=== PATIENT | female | born 1985 | race African-American/Black ===

== ENCOUNTER 2018-10-24 18:41 | Emergency (ER) | payer SELFPAY ==
--- NOTE | 2018-10-24 18:59 | ER Document Report ---
ED Medical Screen (RME) - General Chief Complaint: Probable Seizure Stated Complaint: LEG INJURY Time Seen by Provider: 10/24/18 18:49 Mode of Arrival: Wheelchair Information source: Patient Notes: Patient presents stating that she has had 2 seizures within the past week with the last one being 3 days ago. Patient presents complaining of right knee pain after falling when she had a seizure. Patient reports a history of PTSD and epilepsy. Patient states she recently relocated to the area and has not gotten established with a primary doctor. Patient states she has been cutting her usua l medication doses in half to make them last longer. I have greeted and performed a rapid initial assessment of this patient. A comprehensive ED assessment and evaluation of the patient, analysis of test results and completion of the medical decision making process will be conducted by additional ED providers. TRAVEL OUTSIDE OF THE [place] IN LAST 30 DAYS: No - Related Data Allergies/Adverse Reactions: No Known Allergies Allergy (Verified 10/24/18 18:43) Physical Exam - Vital signs Vitals: Temp Pulse Resp BP Pulse Ox 98.4 F 87 16 101/62 100 10/24/18 18:49 10/24/18 18:49 10/24/18 18:49 10/24/18 18:49 10/24/18 18:49 - Extremities General lower extremity: Tender - Right knee joint pain, positive effusion Course - Vital Signs Vital signs: Temp Pulse Resp BP Pulse Ox 98.4 F 87 16 101/62 100 10/24/18 18:49 10/24/18 18:49 10/24/18 18:49 10/24/18 18:49 10/24/18 18:49
--- NOTE | 2018-10-24 19:35 | RADIOLOGY REPORT (SQ) ---
EXAM DESCRIPTION: KNEE RIGHT 4 VIEWS COMPLETED DATE/TIME: 10/24/2018 7:27 pm REASON FOR STUDY: seizure, r knee pain COMPARISON: None. NUMBER OF VIEWS: Four views. TECHNIQUE: AP, lateral, and both oblique radiographic images acquired of the right knee. LIMITATIONS: None. FINDINGS: MINERALIZATION: Normal. BONES: No acute fracture or dislocation. Multi compartment joint space narrowing with prominent oste ophytes. No worrisome bone lesions. JOINT: No effusion. SOFT TISSUES: No soft tissue swelling. No radio-opaque foreign body. OTHER: No other significant finding. IMPRESSION: DEGENERATIVE JOINT DISEASE. NO ACUTE FINDINGS. TECHNICAL DOCUMENTATION: JOB ID: [id number] [employer]- All Rights Reserved Reading location - IP/workstation name: [email or web address]
[2018-10-24 19:57] LABS: ABSOLUTE LYMPHOCYTES (AUTO) 1.8 10^3/uL (0.5-4.7); ABSOLUTE MONOCYTES (AUTO) 0.5 10^3/uL (0.1-1.4); ABSOLUTE NEUT (AUTO) 2.3 10^3/uL (1.7-8.2); BASOPHILS % (AUTO) 0.5 % (0-2); EOSINOPHILS % (AUTO) 1.1 % (0-6); HEMATOCRIT 30.9 % (36.0-47.0); HEMOGLOBIN 9.8 g/dL (12.0-15.5); LYMPHOCYTES % (AUTO) 39.6 % (13-45); MEAN CORPUSCULAR HEMOGLOBIN 25.7 pg (27.0-33.4); MEAN CORPUSCULAR HGB CONC 31.8 g/dL (32.0-36.0); MEAN CORPUSCULAR VOLUME 81 fl (80-97); MONOCYTES % (AUTO) 9.9 % (3-13); PLATELET COUNT 251 10^3/uL (150-450); RED BLOOD COUNT 3.82 10^6/uL (3.72-5.28); SEGMENTED NEUTROPHILS % (AUTO) 48.9 % (42-78); TOTAL CELLS COUNTED % (AUTO) 100 %; WHITE BLOOD COUNT 4.6 10^3/uL (4.0-10.5)
[2018-10-24 20:25] LABS: ALBUMIN 3.9 g/dL (3.5-5.0); ALKALINE PHOSPHATASE 55 U/L (38-126); ANION GAP 6 (5-19); ASPARTATE AMINO TRANSFERASE 18 U/L (14-36); BILIRUBIN,DIRECT 0.1 mg/dL (0.0-0.4); BILIRUBIN,TOTAL 0.2 mg/dL (0.2-1.3); BLOOD UREA NITROGEN 11 mg/dL (7-20); CALCIUM 9.3 mg/dL (8.4-10.2); CARBON DIOXIDE 29 mmol/L (22-30); CHLORIDE 106 mmol/L (98-107); GLUCOSE 78 mg/dL (75-110); POTASSIUM 4.2 mmol/L (3.6-5.0); TOTAL PROTEIN 6.6 g/dL (6.3-8.2)
--- NOTE | 2018-10-24 21:00 | EKG REPORT ---
SEVERITY:- NORMAL ECG - SINUS RHYTHM : Confirmed by: Erik Palacios MD 24-Oct-2018 20:59:51
--- NOTE | 2018-10-24 22:09 | ER Document Report ---
ED General - General Chief Complaint: Probable Seizure Stated Complaint: LEG INJURY Time Seen by Provider: 10/24/18 18:49 Mode of Arrival: Wheelchair Notes: Patient is a 33-year-old female with epilepsy that presents to the emergency department for chief complaint of right knee injury. Patient states that she has had 3 seizures in the past week, because she is been cutting back on her Lamictal, to make it last longer, she states that she does not have a primary care and recently moved to the area, and has been trying to make it work, but she is been having more seizures and as a result she injured her right knee during 1 of her seizures on Friday where she struck it on a table. She is having pain with walking, and she has a history of issues with her right knee, where she has valgus deformity, that she states was supposed to be corrected when she was a teenager, but never occurred, so she has one shorter length and the other. She has pain with range of motion of the knee, but denies any redness, it has swollen, but no fevers. She currently rates her pain at rest as a 3 out of 10 describes as a dull aching sensation that is constant but worse with walking. Past Medical History: Epilepsy, PTSD Past Surgical History: Denies any recent or pertinent surgical history Social History: Denies tobacco, alcohol or drug use. Family History: Reviewed and noncontributory for presenting illness Allergies: Reviewed, see documented allergy list. REVIEW OF SYSTEMS: Other than noted above, the 12 point review of systems was reviewed with the patient and were negative, all pertinent findings are included in the HPI. PHYSICAL EXAMINATION: Vital signs reviewed, nursing noted reviewed. GENERAL: Well-appearing, well-nourished and in no acute distress. HEAD: Atraumatic, normocephalic. EYES: Eyes appear normal, extraocular movements intact, sclera anicteric, conjunctiva are normal. ENT: nares patent, oropharynx clear without exudates. Moist mucous membranes. NECK: Normal range of motion, supple without lymphadenopathy LUNGS: Breath sounds clear to auscultation bilaterally and equal. No wheezes rales or rhonchi. HEART: Regular rate and rhythm without murmurs EXTREMITIES: The right knee has valgus deformity, there is an appreciable joint effusion, without erythema, there is tenderness to palpation over the anterior joint lines, but none posterior, no joint instability, negative anterior and posterior drawer testing, there is healing ecchymosis over the anterior aspect. The patella is in proper alignment. The rest the patient's extremity exam is grossly unremarkable. NEUROLOGICAL: No focal neurological deficits. Moves all extremities spontaneously Motor and sensory grossly intact on exam. PSYCH: Normal mood, normal affect. SKIN: Warm, Dry, normal turgor, no rashes or lesions noted on exposed skin TRAVEL OUTSIDE OF THE [place] IN LAST 30 DAYS: No - Related Data Allergies/Adverse Reactions: No Known Allergies Allergy (Verified 10/24/18 18:43) Past Medical History - General Information source: Patient - Social History Smoking Status: Never Smoker Family History: Reviewed & Not Pertinent Patient has suicidal ideation: No Patient has homicidal ideation: No Neurological Medical History: Reports: Hx Seizures Physical Exam - Vital signs Vitals: Temp Pulse Resp BP Pulse Ox 98.4 F 87 16 101/62 100 10/24/18 18:49 10/24/18 18:49 10/24/18 18:49 10/24/18 18:49 10/24/18 18:49 Course - Re-evaluation Re-evalutation: Patient seen and examined vital signs reviewed. Laboratory data and/or imaging were ordered as appropriate for the patient's presenting symptoms and complaint, with consideration of any critical or life threatening conditions that may be associated with their obtained history and exam as noted above. Patient was treated with IM Depo-Medrol and Toradol Results were reviewed when available and demonstrated arthritis in the knee joint, blood work unremarkable, only mild anemia which patient apparently has history of, ordered in triage The patient was re-evaluated and was stable Evaluation was most consistent with left knee pain with joint effusion, patient was discharged home with naproxen, crutches, and Francisco Javier wrap, advised follow-up with orthopedics, given referral to primary care, and given prescription for Lamictal, so that she does have a antiepileptic medication at home. Results were discussed with the patient at this point, after careful consideration I feel that that patient can be discharged from the emergency department, the patient was educated treatments and reasons to return to the emergency department based on their presumed diagnosis as noted above, they were advised to followup with a primary care physician in 2-3 days. Patient was agreeable to plan of care. *Note is created using voice recognition software and may contain spelling, syntax or grammatical errors. Laboratory 10/24/18 10/24/18 19:33 19:33 WBC 4.6 RBC 3.82 Hgb 9.8 L Hct 30.9 L MCV 81 MCH 25.7 L MCHC 31.8 L RDW 16.0 H Plt Count 251 Lymph % (Auto) 39.6 Sheridan % (Auto) 9.9 Eos % (Auto) 1.1 Baso % (Auto) 0.5 Absolute Neuts (auto) 2.3 Absolute Lymphs (auto) 1.8 Absolute Monos (auto) 0.5 Absolute Eos (auto) 0.0 Absolute Basos (auto) 0.0 Seg Neutrophils % 48.9 Sodium 141.2 Potassium 4.2 Chloride 106 Carbon Dioxide 29 Anion Gap 6 BUN 11 Creatinine 0.85 Est GFR ( Amer) > 60 Est GFR (MDRD) Non-Af > 60 Glucose 78 Calcium 9.3 Total Bilirubin 0.2 Direct Bilirubin 0.1 Neonat Total Bilirubin Not Reportable Neonat Direct Bilirubin Not Reportable Neonat Indirect Bili Not Reportable AST 18 ALT 10 Alkaline Phosphatase 55 Total Protein 6.6 Albumin 3.9 Knee X-Ray 10/24/18 18:57 IMPRESSION: DEGENERATIVE JOINT DISEASE. NO ACUTE FINDINGS. - Vital Signs Vital signs: Temp Pulse Resp BP Pulse Ox 98.1 F 61 16 103/57 L 99 10/24/18 21:50 10/24/18 21:50 10/24/18 21:50 10/24/18 21:50 10/24/18 21:50 - Laboratory Result Diagrams: 10/24/18 19:33 10/24/18 19:33 Laboratory results interpreted by me: 10/24/18 19:33 Hgb 9.8 L Hct 30.9 L MCH 25.7 L MCHC 31.8 L RDW 16.0 H - EKG Interpretation by Me Additional EKG results interpreted by me: EKG demonstrates sinus rhythm with a ventricular rate of 69 bpm, normal axis, normal intervals, no evidence of ischemia in this EKG. Discharge - Discharge Clinical Impression: Knee effusion, right Right knee injury Qualifiers: Encounter type: initial encounter Qualified Code(s): S89.91XA - Unspecified i njury of right lower leg, initial encounter Condition: Stable Disposition: HOME, SELF-CARE Instructions: Knee Effusion ([facility]), Suspected Internal Knee Injury ([facility]) Additional Instructions: Please follow-up with orthopedic surgery, keep your knee wrapped with the Francisco Javier wrap to decrease the swelling, keep it elevated as much as possible throughout the day, and apply a warm or cool compress for 20 minutes on 20 minutes off throughout the day to try to help with swelling and pain, he can also take the prescribed medication. Primary care group is been listed with your paperwork, I have also referred you to our case folder. Prescriptions: Lamotrigine [Lamictal] 200 mg PO BID #60 tablet Lamotrigine [Lamictal] 50 mg PO BID #120 tablet Naproxen [Naprosyn] 500 mg PO BID #30 tablet Referrals: ANGELICA CHEN MD [ACTIVE STAFF] - Follow up in 3-5 days (orthopedics ) [facility] [Provider Group] - Follow up in 3-5 days (primary care. )
[2018-10-24] MEDS ORDERED: KETOROLAC TROMETHAMINE 60 MG/2 ML SDV IM ONE (22:26)
[2018-10-24] MEDS ORDERED: METHYLPREDNISOLONE ACETATE INJ 80 MG/1 ML VIAL IM ONE (22:26)
[2018-10-25 00:21] VITALS: BP 108/59
== END 2018-10-24 22:55 | disposition home or self-care (01) ==
LOC: ER 18:41
DX: S89.91XA Unspecified injury of right lower leg, initial encounter (principal); M25.461 Effusion, right knee; M25.561 Pain in right knee; W22.8XXA Striking against or struck by other objects, initial encounter
CPT/HCPCS: 93005; 99284; 96372; 36415; 85025; 80053; 73564; 93010; J1885; J1040

== ENCOUNTER 2018-12-26 14:29 | Emergency (ER) | payer SELFPAY ==
[2018-12-26 14:56] VITALS: BP 131/57
--- NOTE | 2018-12-26 15:14 | ER Document Report ---
ED Medical Screen (RME) - General Chief Complaint: Medication Refill Stated Complaint: MEDICATION REFILL Time Seen by Provider: 12/26/18 15:11 Mode of Arrival: Ambulatory Information source: Patient Notes: 33-year-old female presented to ED due to running out of her seizure medicines. She states she just moved from [place]. She states she has not been able to get a primary doctor due to her insurance problems. She states she has run out of her seizure medications. She states she took her seizure medicines last night she states she has her medication bottles with her. States she smokes half pack a day does not drink or do any drugs. She states as long as she takes her medication she does not have seizures. Menstrual cycle was December 13, 2018. I have greeted and performed a rapid initial assessment of this patient. A comprehensive ED assessment and evaluation of the patient, analysis of test results and completion of medical decision making process will be conducted by an additional ED providers. TRAVEL OUTSIDE OF THE [place] IN LAST 30 DAYS: No - Related Data Allergies/Adverse Reactions: No Known Allergies Allergy (Verified 10/24/18 18:43) Past Medical History Neurological Medical History: Reports: Hx Seizures Physical Exam - Vital signs Vitals: Temp Pulse Resp BP Pulse Ox 98.4 F 74 18 131/57 H 100 12/26/18 14:56 12/26/18 14:56 12/26/18 14:56 12/26/18 14:56 12/26/18 14:56 Course - Vital Signs Vital signs: Temp Pulse Resp BP Pulse Ox 98.4 F 74 18 131/57 H 100 12/26/18 14:56 12/26/18 14:56 12/26/18 14:56 12/26/18 14:56 12/26/18 14:56
[2018-12-26 15:45] LABS: APPEARANCE,URINE SLIGHTLY-CLOUDY; BILIRUBIN,URINE NEGATIVE (NEGATIVE); COLOR,URINE YELLOW; GLUCOSE, URINE NEGATIVE (NEGATIVE); KETONES,URINE NEGATIVE (NEGATIVE); PROTEIN,URINE NEGATIVE (NEGATIVE); URINE SPECIFIC GRAVITY 1.025; UROBILINOGEN,URINE NEGATIVE mg/dL (<2.0)
[2018-12-26 15:56] LABS: ALBUMIN 3.8 g/dL (3.5-5.0); ALKALINE PHOSPHATASE 52 U/L (38-126); ANION GAP 9 (5-19); ASPARTATE AMINO TRANSFERASE 18 U/L (14-36); BILIRUBIN,DIRECT 0.1 mg/dL (0.0-0.4); BILIRUBIN,TOTAL 0.2 mg/dL (0.2-1.3); BLOOD UREA NITROGEN 10 mg/dL (7-20); CALCIUM 8.8 mg/dL (8.4-10.2); CARBON DIOXIDE 21 mmol/L (22-30); CHLORIDE 112 mmol/L (98-107); GLUCOSE 87 mg/dL (75-110); POTASSIUM 4.2 mmol/L (3.6-5.0); TOTAL PROTEIN 6.8 g/dL (6.3-8.2)
[2018-12-26 15:59] LABS: ABSOLUTE EOSINOPHILS # (AUTO) 0.1 10^3/uL (0.0-0.6); ABSOLUTE MONOCYTES (AUTO) 0.5 10^3/uL (0.1-1.4); ABSOLUTE NEUT (AUTO) 2.4 10^3/uL (1.7-8.2); EOSINOPHILS % (AUTO) 1.3 % (0-6); HEMOGLOBIN 9.8 g/dL (12.0-15.5); TOTAL CELLS COUNTED % (AUTO) 100 %
[2018-12-26 16:04] LABS: BASOPHILS % (AUTO) 0.6 % (0-2); HEMATOCRIT 30.8 % (36.0-47.0); LYMPHOCYTES % (AUTO) 40.5 % (13-45); MEAN CORPUSCULAR HGB CONC 31.9 g/dL (32.0-36.0); MEAN CORPUSCULAR VOLUME 79 fl (80-97); MONOCYTES % (AUTO) 9.6 % (3-13); PLATELET COUNT 238 10^3/uL (150-450); RED BLOOD COUNT 3.92 10^6/uL (3.72-5.28); RED CELL DISTRIBUTION WIDTH 16.3 % (11.5-14.0)
--- NOTE | 2018-12-26 16:53 | ER Document Report ---
HPI - HPI Time Seen by Provider: 12/26/18 15:11 Pain Level: 0 Notes: Patient is a 33-year-old female who presents requesting refill of her Lamictal that she takes for seizures. She also has a history of PTSD. Patient last had it filled by 1 of our providers here at the end of September. Patient states that she takes 500 mg total and 1 day with 250 in the morning and 250 in the evening. Patient states that her last seizure was about 3 weeks ago which is not uncommo n for her. She is otherwise able to eat and drink without difficulty. She is urinating normally and having normal bowel movements. Patient states that she did have a job, but was let go recently so she has had issues with insurance and finding a primary provider. No other concerns or complaints. Denies any headache, fever, head injury, neck pain, changes in vision/speech/mentation/hearing, URI, sore throat, chest pain, palpitations, syncope, cough, shortness of breath, wheeze, dyspnea, abdominal pain, nausea/vomiting/diarrhea, urinary retention, dysuria, hematuria, loss of control of bowel or bladder, numbness/tingling, saddle anesthesia, muscle paralysis/weakness, or rash. - ROS Systems Reviewed and Negative: Yes All other systems reviewed and negative - REPRODUCTIVE Reproductive: DENIES: : Past Medical History - General Information source: Patient - Social History Smoking Status: Current Every Day Smoker Chew tobacco use (# tins/day): No Frequency of alcohol use: None Drug Abuse: None Family History: Reviewed & Not Pertinent Patient has suicidal ideation: No Patient has homicidal ideation: No Neurological Medical History: Reports: Hx Seizures Vertical Provider Document - CONSTITUTIONAL Agree With Documented VS: Yes - He Notes: PHYSICAL EXAMINATION: GENERAL: Well-appearing, well-nourished and in no acute distress. HEAD: Atraumatic, normocephalic. EYES: Pupils equal round and reactive to light, extraocular movements intact, sclera anicteric, conjunctiva are normal. ENT: Nares patent and without discharge. oropharynx clear without exudates. No tonsilar hypertrophy or erythema. Moist mucous membranes. NECK: Normal range of motion, supple without lymphadenopathy LUNGS: Breath sounds clear to auscultation bilaterally and equal. No wheezes rales or rhonchi. HEART: Regular rate and rhythm without murmurs, rubs, gallops. ABDOMEN: Soft, nontender, nondistended abdomen. No guarding, no rebound. No masses appreciated. Normal bowel sounds present. No CVA tenderness bilaterally. Musculoskeletal: FROM to passive/active. Strength 5+/5. Extremities: No cyanosis, clubbing, or edema b/l. Peripheral pulses 2+. Capillary refill less than 3 seconds. NEUROLOGICAL: Cranial nerves grossly intact. Normal speech, normal gait. Normal sensory, motor exams PSYCH: Normal mood, normal affect. SKIN: Warm, Dry, normal turgor, no rashes or lesions noted. - INFECTION CONTROL TRAVEL OUTSIDE OF THE [place] IN LAST 30 DAYS: No Course - Re-evaluation Re-evalutation: 12/26/18 16:49 Patient is an afebrile, well-hydrated, 33-year-old female who presents for refill of her medication for seizures. Vitals are acceptable without significant tachycardia, tachypnea, or hypoxia. PE is otherwise unremarkable. Patient is nontoxic-appearing and is tolerating p.o. without difficulty. Labs unremarkable. No further work-up warranted. I reviewed with patient that I will refill her medication, but she needs to establish with a family provider as we are not able to continue providing medications in this type of capacity. Low suspicion for any sepsis, meningitis, severe dehydration, respiratory c ompromise, or other systemic emergent condition at this time. Pt is aware that condition can change from initial presentation and she needs to monitor symptoms closely and seek medical attention with any acute changes. Recheck with established with PCM this next week. Return to the ED with any other worsening/concerning symptoms. Patient is in agreement. - Vital Signs Vital signs: Temp Pulse Resp BP Pulse Ox 98.4 F 74 18 131/57 H 100 12/26/18 14:56 12/26/18 14:56 12/26/18 14:56 12/26/18 14:56 12/26/18 14:56 - Laboratory Result Diagrams: 12/26/18 15:40 12/26/18 15:33 Laboratory results interpreted by me: 12/26/18 12/26/18 15:33 15:40 Hgb 9.8 L Hct 30.8 L MCV 79 L MCH 25.0 L MCHC 31.9 L RDW 16.3 H Chloride 112 H Carbon Dioxide 21 L Discharge - Discharge Clinical Impression: Medication refill Condition: Stable Disposition: HOME, SELF-CARE Additional Instructions: You may call the hospital to speak with "Discharge Planning" to help you get involved with the [facility]. Rest, Ice/cool compress Tylenol/ibuprofen as needed Light stretches daily Strength exercises as able Moist heat and massage may help Establish with PCP within the next week for a recheck Consider consult(s) with Neurology for ongoing/worsening symptoms Return to the ED with any worsening symptoms and/or development of fever, headache, changes in behavior/mentation/vision/speech, chest pain, palpitations, syncope, shortness of breath, trouble breathing, abdominal pain, n/v/d, blood in stool/urine, loss of control of bowel/bladder, urinary retention, muscle weakness/paralysis, saddle anesthesia, numbness/tingling, or other worsening symptoms that are concerning to you. Prescriptions: Lamotrigine [Lamictal] 200 mg PO BID #60 tablet Lamotrigine [Lamictal] 50 mg PO BID #120 tablet Forms: Elevated Blood Pressure Referrals: [facility] [Provider Group] - Follow up as needed [facility] [Provider Group] - Follow up in 1 week
== END 2018-12-26 17:07 | disposition home or self-care (01) ==
LOC: ER 14:29
DX: G40.909 Epilepsy, unspecified, not intractable, without status epilepticus (principal); F43.10 Post-traumatic stress disorder, unspecified; F17.200 Nicotine dependence, unspecified, uncomplicated
CPT/HCPCS: 36415; 80053; 81001; 84703; 85025

== ENCOUNTER 2019-03-13 17:08 | Emergency (ER) | payer SELFPAY ==
[2019-03-13 17:12] VITALS: BP 116/61
--- NOTE | 2019-03-13 17:26 | ER Document Report ---
HPI - HPI Time Seen by Provider: 03/13/19 17:15 Pain Level: Denies Notes: Patient is a 33-year-old female who presents requesting refill of her Lamictal that she takes for seizures. She also has a history of PTSD. Patient states that her last seizure was about a couple days ago which is not uncommon for her. She is otherwise able to eat and drink without difficulty. She is urinating normally and having normal bowel movements. Pt has tried calling some local ur gent cares but they charge too much. She never contacted the [facility] which I reviewed with her thoroughly at her last eval. No other concerns or complaints. Denies any headache, fever, head injury, neck pain, changes in vision/speech/mentation/hearing, URI, sore throat, chest pain, palpitations, syncope, cough, shortness of breath, wheeze, dyspnea, abdominal pain, nausea/vomiting/diarrhea, urinary retention, dysuria, hematuria, loss of control of bowel or bladder, numbness/tingling, saddle anesthesia, muscle paralysis/weakness, or rash. PHYSICAL EXAMINATION: GENERAL: Well-appearing, well-nourished and in no acute distress. HEAD: Atraumatic, normocephalic. EYES: Pupils equal round and reactive to light, extraocular movements intact, sclera anicteric, conjunctiva are normal. ENT: Nares patent and without discharge. oropharynx clear without exudates. No tonsilar hypertrophy or erythema. Moist mucous membranes. NECK: Normal range of motion, supple without lymphadenopathy LUNGS: Breath sounds clear to auscultation bilaterally and equal. No wheezes rales or rhonchi. HEART: Regular rate and rhythm without murmurs, rubs, gallops. ABDOMEN: Soft, nontender, nondistended abdomen. No guarding, no rebound. No masses appreciated. Normal bowel sounds present. No CVA tenderness bilaterally. Musculoskeletal: FROM to passive/active. Strength 5+/5. Extremities: No cyanosis, clubbing, or edema b/l. Peripheral pulses 2+. Capillary refill less than 3 seconds. NEUROLOGICAL: Cranial nerves grossly intact. Normal speech, normal gait. Normal sensory, motor exams PSYCH: Normal mood, normal affect. SKIN: Warm, Dry, normal turgor, no rashes or lesions noted. - ROS Systems Reviewed and Negative: Yes All other systems reviewed and negative - REPRODUCTIVE Reproductive: DENIES: : Past Medical History - Social History Smoking Status: Current Every Day Smoker Frequency of alcohol use: None Drug Abuse: Marijuana Family History: Reviewed & Not Pertinent Patient has suicidal ideation: No Patient has homicidal ideation: No Neurological Medical History: Reports: Hx Seizures - epilepsy Vertical Provider Document - CONSTITUTIONAL Agree With Documented VS: Yes - INFECTION CONTROL TRAVEL OUTSIDE OF THE [place] IN LAST 30 DAYS: No Course - Re-evaluation Re-evalutation: 03/13/19 17:22 I again strongly encouraged patient to check in with [facility] as well as utilizing our care/returned case inspector. Patient is an afebrile, well-hydrated, 33-year-old female who presents for refill of her medication for seizures. Vitals are acceptable without significant tachycardia, tachypnea, or hypoxia. PE is otherwise unremarkable. Patient is nontoxic-appearing and is tolerating p.o. without difficulty. Labs unremarkable. No further work-up warranted. I reviewed with patient that I will refill her medication, but she needs to establish with a family provider as we are not able to continue providing medications in this type of capacity. Low suspicion for any sepsis, meningitis, severe dehydration, respiratory compromise, or other systemic emergent condition at this time. Pt is aware that condition can change from initial presentation and she needs to monitor symptoms closely and seek medical attention with any acute changes. Recheck with established with PCM this next week. Return to the ED with any other worsening/concerning symptoms. Patient is in agreement. - Vital Signs Vital signs: Temp Pulse Resp BP Pulse Ox 63 14 116/61 100 03/13/19 17:11 03/13/19 17:11 03/13/19 17:11 03/13/19 17:11 Discharge - Discharge Clinical Impression: Medication refill Condition: Stable Disposition: HOME, SELF-CARE Additional Instructions: You may call the hospital to speak with "Discharge Planning" (Dave) to help you get involved with the [facility]. Rest, Ice/cool compress Tylenol/ibuprofen as needed Light stretches daily Strength exercises as able Moist heat and massage may help Establish with PCP within the next week for a recheck Consider consult(s) with Neurology for ongoing/worsening symptoms Return to the ED with any worsening symptoms and/or development of fever, headache, changes in behavior/mentation/vision/speech, chest pain, palpitations, syncope, shortness of breath, trouble breathing, abdominal pain, n/v/d, blood in stool/urine, loss of control of bowel/bladder, urinary retention, muscle weakness/paralysis, saddle anesthesia, numbness/tingling, or other worsening symptoms that are concerning to you. Prescriptions: Lamotrigine [Lamictal] 200 mg PO BID #60 tablet Lamotrigine [Lamictal] 50 mg PO BID #120 tablet Referrals: [facility] [Provider Group] - Follow up in 1 week
== END 2019-03-13 17:34 | disposition home or self-care (01) ==
LOC: ER 17:08
DX: Z76.0 Encounter for issue of repeat prescription (principal)
CPT/HCPCS: 99281

== ENCOUNTER 2020-01-11 10:43 | Emergency (ER) | payer SELFPAY ==
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
[2020-01-11 13:56] VITALS: BP 114/72
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
--- NOTE | 2020-01-11 17:21 | RADIOLOGY REPORT (SQ) ---
EXAM DESCRIPTION: VENOUS UNILATERAL LOWER IMAGES COMPLETED DATE/TIME: 01/11/2020 1:07 pm REASON FOR STUDY: left calf pain x 3d, +homans test COMPARISON: None. TECHNIQUE: Dynamic and static elias scale and color images acquired of the left leg venous system. Se lected spectral images acquired with additional compression and augmentation maneuvers. The contralat eral common femoral vein and saphenofemoral junction were also imaged. Images stored on PACS. LIMITATIONS: None. FINDINGS: COMMON FEMORAL: Normal phasicity, compression and augmentation. No visualized echogenic ma terial on elias scale. No defects on color images. FEMORAL: Normal compression and augmentation. No visualized echogenic material on elias scale. No defe cts on color images. POPLITEAL: Normal compression, augmentation. No visualized echogenic material on elias scale. No defec ts on color images. CALF VESSELS: Normal compression, augmentation. No visualized echogenic material on elias scale. No de fects on color images. GSV and SSV: Normal compression, augmentation. No visualized echogenic material on elias scale. No def ects on color images. ANY DEEP VENOUS INSUFFICIENCY: No. ANY EVIDENCE OF POPLITEAL CYST: No. OTHER: No other significant finding. CONTRALATERAL COMMON FEMORAL VEIN AND SAPHENOFEMORAL JUNCTION: Normal phasicity, compression and augmentation. No visualized echogenic material on elias scale. No de fects on color images. IMPRESSION: NO EVIDENCE DVT OR SVT IN THE LEFT LEG. TECHNICAL DOCUMENTATION: JOB ID: [id number] 2010 [employer]- All Rights Reserved Reading location - IP/workstation name: [email or web address]
== END 2020-01-11 13:54 | disposition home or self-care (01) ==
LOC: ER 10:43
DX: S00.03XA Contusion of scalp, initial encounter (principal); S16.1XXA Strain of muscle, fascia and tendon at neck level, initial encounter; S89.92XA Unspecified injury of left lower leg, initial encounter; W06.XXXA Fall from bed, initial encounter; Y93.84 Activity, sleeping; M47.812 Spondylosis without myelopathy or radiculopathy, cervical region; R42 Dizziness and giddiness; H53.8 Other visual disturbances; F17.210 Nicotine dependence, cigarettes, uncomplicated; F12.10 Cannabis abuse, uncomplicated
CPT/HCPCS: 70450; 72125; 93971; 99285